=== PATIENT | female | born 1975 | race Caucasian/White ===

== ENCOUNTER 2018-05-24 13:48 | Inpatient (IN) | payer BC, MEDICAID ==
[~2018-05-24] VITALS: Ht 170.2 cm; Wt 81.0 kg
--- NOTE | 2018-05-24 14:09 | Emergency Room Report ---
History of Present Illness General Chief Complaint: Overdose Present Illness HPI Patient is a 42-year-old female who presented after increased generalized body aches. Patient reports having recently used cocaine as well as alcohol. She denies any fever. She reports having generalized discomfort. Patient states she has been drinking heavily. The patient stated that for the last week she's been doing "too many drugs.' The patient denies any focal weakness. History is limited by patient's poor cooperation. Allergies: Coded Allergies: AMOXICILLIN (Verified Allergy, Unknown, 05/24/18) Patient History Past Medical History: see triage record Last Menstrual Period: unk Reviewed Nursing Documentation: PMH: Agreed; PSxH: Agreed Review of Systems All Other Systems: negative except mentioned in HPI Physical Exam Vital Signs Date Time Temp Pulse Resp B/P (MAP) Pulse Ox O2 Delivery O2 Flow Rate FiO2 05/24/18 13:50 98.4 120 18 148/108 99 Room Air Sp02 EP Interpretation: reviewed, normal General Appearance: normal inspection, well appearing, no apparent distress, alert, GCS 15, non-toxic Head: atraumatic ENT: normal ENT inspection, hearing grossly normal, normal voice Neck: normal inspection, full range of motion, supple, no bony tend Respiratory: normal inspection, lungs clear, normal breath sounds, no respiratory distress, no retraction, no wheezing Cardiovascular #1: regular rate, rhythm, no edema Gastrointestinal: normal inspection, normal bowel sounds, non tender, soft, no guarding, no hernia Genitourinary: no CVA tenderness Musculoskeletal: normal inspection, back normal, normal range of motion Neurologic: normal inspection, alert, oriented x3, responsive, 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 Differential diagnosis included was not limited to anemia, urinary tract infection, electrolyte abnormality, hypothyroidism, myocardial infarction, myasthenia gravis, dehydration, among others. Because of complexity of patient's case laboratory testing and imaging studies were ordered. Laboratory testing was notable for market metabolic acidosis with elevated anion gap. Patient was started on IV fluids and given IV antiemetics. Patient was noted to have elevated blood alcohol level despite being awake and alert. Patient states that she was doing cocaine and urine drug screen confirms this. Patient was discussed with Dr. Lopez for Dr. Lema for inpatient management due need for IV hydration. Labs Test 05/24/18 13:57 05/24/18 14:55 05/24/18 15:56 White Blood Count 8.1 K/UL (4.8-10.8) Red Blood Count 4.43 M/UL (4.20-5.40) Hemoglobin 13.8 G/DL (12.0-16.0) Hematocrit 42.4 % (37.0-47.0) Mean Corpuscular Volume 96 FL (80-99) Mean Corpuscular Hemoglobin 31.0 PG (27.0-31.0) Mean Corpuscular Hemoglobin Concent 32.4 G/DL (32.0-36.0) Red Cell Distribution Width 14.6 % (11.6-14.8) Platelet Count 298 K/UL (150-450) Mean Platelet Volume 6.1 FL (6.5-10.1) Neutrophils (%) (Auto) 70.6 % (45.0-75.0) Lymphocytes (%) (Auto) 18.4 % (20.0-45.0) Monocytes (%) (Auto) 8.1 % (1.0-10.0) Eosinophils (%) (Auto) 0.1 % (0.0-3.0) Basophils (%) (Auto) 2.8 % (0.0-2.0) Sodium Level 137 MMOL/L (136-145) Potassium Level 3.6 MMOL/L (3.5-5.1) Chloride Level 97 MMOL/L (98-107) Carbon Dioxide Level 14 MMOL/L (21-32) Anion Gap 26 mmol/L (5-15) Blood Urea Nitrogen 13 mg/dL (7-18) Creatinine 0.9 MG/DL (0.55-1.30) Estimat Glomerular Filtration Rate > 60 mL/min (>60) Glucose Level 86 MG/DL (74-106) Calcium Level 8.8 MG/DL (8.5-10.1) Total Bilirubin 0.5 MG/DL (0.2-1.0) Aspartate Amino Transf (AST/SGOT) 593 U/L (15-37) Alanine Aminotransferase (ALT/SGPT) 310 U/L (12-78) Alkaline Phosphatase 92 U/L (46-116) Total Creatine Kinase 123 U/L (26-308) Troponin I 0.000 ng/mL (0.000-0.056) Total Protein 9.3 G/DL (6.4-8.2) Albumin 4.3 G/DL (3.4-5.0) Globulin 5.0 g/dL Albumin/Globulin Ratio 0.9 (1.0-2.7) Lipase 299 U/L (73-393) Thyroid Stimulating Hormone (TSH) 3.806 uiU/mL (0.358-3.740) Serum Alcohol 341 mg/dL Urine Color Pale yellow Urine Appearance Clear Urine pH 5 (4.5-8.0) Urine Specific [place] 1.020 (1.005-1.035) Urine Protein 1+ (NEGATIVE) Urine Glucose (UA) Negative (NEGATIVE) Urine Ketones 4+ (NEGATIVE) Urine Blood 1+ (NEGATIVE) Urine Nitrite Negative (NEGATIVE) Urine Bilirubin Negative (NEGATIVE) Urine Urobilinogen Normal MG/DL (0.0-1.0) Urine Leukocyte Esterase Negative (NEGATIVE) Urine RBC 0-2 /HPF (0 - 2) Urine WBC 0-2 /HPF (0 - 2) Urine Squamous Epithelial Cells Few /LPF (NONE/OCC) Urine Bacteria Few /HPF (NONE) Urine HCG, Qualitative Negative (NEGATIVE) Urine Opiates Screen Negative (NEGATIVE) Urine Barbiturates Screen Negative (NEGATIVE) Phencyclidine (PCP) Screen Negative (NEGATIVE) Urine Amphetamines Screen Negative (NEGATIVE) Urine Benzodiazepines Screen Positive (NEGATIVE) Urine Cocaine Screen Positive (NEGATIVE) Urine Marijuana (THC) Screen Negative (NEGATIVE) Salicylates Level 1.8 ug/mL (2.8-20) Last Vital Signs Date Time Temp Pulse Resp B/P (MAP) Pulse Ox O2 Delivery O2 Flow Rate FiO2 05/24/18 13:50 98.4 120 18 148/108 99 Room Air Status: unchanged Disposition: ADMITTED INPATIENT Condition: Stable Efren Mustafa MD May 24, 2018 14:09
[2018-05-24 14:15] VITALS: BP 173/91
[2018-05-24] MEDS ORDERED: LORazepam Inj 2mg/ml 1ml IV ONE (14:30)
[2018-05-24 14:33] LABS: BASOPHILS % (AUTO) 2.8 % (0.0-2.0); EOSINOPHILS % (AUTO) 0.1 % (0.0-3.0); HEMATOCRIT 42.4 % (37.0-47.0); HEMOGLOBIN 13.8 G/DL (12.0-16.0); LYMPHOCYTES % (AUTO) 18.4 % (20.0-45.0); MEAN CORPUSCULAR VOLUME 96 FL (80-99); MONOCYTES % (AUTO) 8.1 % (1.0-10.0); NEUTROPHILS % (AUTO) 70.6 % (45.0-75.0); PLATELET COUNT 298 K/UL (150-450); RED BLOOD COUNT 4.43 M/UL (4.20-5.40); RED CELL DISTRIBUTION WIDTH 14.6 % (11.6-14.8); WHITE BLOOD COUNT 8.1 K/UL (4.8-10.8)
[2018-05-24 15:05] LABS: BILIRUBIN, URINE NEGATIVE (NEGATIVE); COLOR,URINE PALE YELLOW; GLUCOSE, URINE (UA) NEGATIVE (NEGATIVE); KETONES,URINE 4+ (NEGATIVE); LEUKOCYTE ESTERASE ,URINE NEGATIVE (NEGATIVE); NITRITE,URINE NEGATIVE (NEGATIVE); PH,URINE 5 (4.5-8.0); PROTEIN,URINE 1+ (NEGATIVE); UROBILINOGEN,URINE NORMAL MG/DL (0.0-1.0)
[2018-05-24 15:06] LABS: APPEARANCE,URINE CLEAR
[2018-05-24 15:22] LABS: ANION GAP 26 mmol/L (5-15); BLOOD UREA NITROGEN 13 mg/dL (7-18); CALCIUM 8.8 MG/DL (8.5-10.1); CARBON DIOXIDE 14 MMOL/L (21-32); CHLORIDE 97 MMOL/L (98-107); CREATININE 0.9 MG/DL (0.55-1.30); POTASSIUM 3.6 MMOL/L (3.5-5.1); SODIUM 137 MMOL/L (136-145)
[2018-05-24 15:34] LABS: ALANINE AMINOTRANSFERASE 310 U/L (12-78); ALBUMIN 4.3 G/DL (3.4-5.0); ALBUMIN/GLOBULIN RATIO 0.9 (1.0-2.7); ALKALINE PHOSPHATASE 92 U/L (46-116); ASPARTATE AMINO TRANSFERASE 593 U/L (15-37); BILIRUBIN,TOTAL 0.5 MG/DL (0.2-1.0); CREATINE KINASE 123 U/L (26-308)
[2018-05-24] MEDS: D5 1/2NS w/KCl 20mEq 1,000 ML IV SCH ×2 (15:59→21:26)
[2018-05-24] MEDS ORDERED: NKM (16:05)
[2018-05-24 16:16] VITALS: BP 136/88
[2018-05-24 18:18] VITALS: BP 117/80
--- NOTE | 2018-05-24 18:21 | History and Physical ---
History of Present Illness General Date patient seen: May 24, 2018 Time patient seen: 18:04 Reason for Hospitalization: Overdose Present Illness HPI 42 yo female with no sig pmh presents with complaints of generalized body aches. Patient states she has been feeling very weak throughout her whole body, denies any focal weakness. Patient admits to binge drinking. Patient does not know how much alcohol she consumed, states she has been doing a lot of cocaine as well. patient very agitated and very difficult to obtain accurate history from patient. Denies any vision changes, had a mild headache, denies any chest pain or sob, denies fevers/chills. code status discussed, patient would like to remain full code past fam hx: reviewed, denies any sig past fam hx that she is aware of social hx: reviewed, admits to excessive alcohol use, admits to cocaine use, denies other drugs, admits to smoking occasionally, would not tell me how much, likely less than half ppd Allergies: Coded Allergies: AMOXICILLIN (Verified Allergy, Unknown, 05/24/18) Medication History Scheduled No Known Medications* (NKM - No Known Medications*), 0 ., (Reported) Patient History History Provided By: Patient, EMS Healthcare decision maker Resuscitation status Advanced Directive on File Review of Systems All Other Systems: negative except mentioned in HPI ROS Narrative ROS : 14 point ROS reviewed and negative except for the above HPI Physical Exam General Appearance: WD/WN, alert, agitated Lines, tubes and drains: peripheral HEENT: normocephalic, atraumatic Neck: non-tender, normal alignment, supple, normal inspection Respiratory/Chest: chest wall non-tender, lungs clear, normal breath sounds, no respiratory distress, no accessory muscle use Cardiovascular/Chest: normal peripheral pulses, regular rhythm, tachycardia Abdomen: normal bowel sounds, non tender, soft, no organomegaly, no mass Extremities: normal range of motion, non-tender, normal inspection Skin Exam: normal pigmentation, warm/dry 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, no motor/sensory deficits, alert, oriented x 3, responsive Musculoskeletal: normal muscle bulk Last 24 Hour Vital Signs Date Time Temp Pulse Resp B/P (MAP) Pulse Ox O2 Delivery O2 Flow Rate FiO2 05/24/18 16:16 98.4 95 15 136/88 99 Room Air 05/24/18 14:15 98.4 99 18 173/91 93 Room Air 05/24/18 14:11 99 12 Room Air 93 05/24/18 13:50 98.4 120 18 148/108 99 Room Air Laboratory Tests Test 05/24/18 13:57 05/24/18 14:55 05/24/18 15:56 White Blood Count 8.1 K/UL (4.8-10.8) Red Blood Count 4.43 M/UL (4.20-5.40) Hemoglobin 13.8 G/DL (12.0-16.0) Hematocrit 42.4 % (37.0-47.0) Mean Corpuscular Volume 96 FL (80-99) Mean Corpuscular Hemoglobin 31.0 PG (27.0-31.0) Mean Corpuscular Hemoglobin Concent 32.4 G/DL (32.0-36.0) Red Cell Distribution Width 14.6 % (11.6-14.8) Platelet Count 298 K/UL (150-450) Mean Platelet Volume 6.1 FL (6.5-10.1) L Neutrophils (%) (Auto) 70.6 % (45.0-75.0) Lymphocytes (%) (Auto) 18.4 % (20.0-45.0) L Monocytes (%) (Auto) 8.1 % (1.0-10.0) Eosinophils (%) (Auto) 0.1 % (0.0-3.0) Basophils (%) (Auto) 2.8 % (0.0-2.0) H Sodium Level 137 MMOL/L (136-145) Potassium Level 3.6 MMOL/L (3.5-5.1) Chloride Level 97 MMOL/L (98-107) L Carbon Dioxide Level 14 MMOL/L (21-32) L Anion Gap 26 mmol/L (5-15) H Blood Urea Nitrogen 13 mg/dL (7-18) Creatinine 0.9 MG/DL (0.55-1.30) Estimat Glomerular Filtration Rate > 60 mL/min (>60) Glucose Level 86 MG/DL (74-106) Calcium Level 8.8 MG/DL (8.5-10.1) Total Bilirubin 0.5 MG/DL (0.2-1.0) Aspartate Amino Transf (AST/SGOT) 593 U/L (15-37) H Alanine Aminotransferase (ALT/SGPT) 310 U/L (12-78) H Alkaline Phosphatase 92 U/L (46-116) Total Creatine Kinase 123 U/L (26-308) Troponin I 0.000 ng/mL (0.000-0.056) Total Protein 9.3 G/DL (6.4-8.2) H Albumin 4.3 G/DL (3.4-5.0) Globulin 5.0 g/dL Albumin/Globulin Ratio 0.9 (1.0-2.7) L Lipase 299 U/L (73-393) Thyroid Stimulating Hormone (TSH) 3.806 uiU/mL (0.358-3.740) Serum Alcohol 341 mg/dL Urine Color Pale yellow Urine Appearance Clear Urine pH 5 (4.5-8.0) Urine Specific [place] 1.020 (1.005-1.035) Urine Protein 1+ (NEGATIVE) H Urine Glucose (UA) Negative (NEGATIVE) Urine Ketones 4+ (NEGATIVE) H Urine Blood 1+ (NEGATIVE) H Urine Nitrite Negative (NEGATIVE) Urine Bilirubin Negative (NEGATIVE) Urine Urobilinogen Normal MG/DL (0.0-1.0) Urine Leukocyte Esterase Negative (NEGATIVE) Urine RBC 0-2 /HPF (0 - 2) Urine WBC 0-2 /HPF (0 - 2) Urine Squamous Epithelial Cells Few /LPF (NONE/OCC) Urine Bacteria Few /HPF (NONE) Urine HCG, Qualitative Negative (NEGATIVE) Urine Opiates Screen Negative (NEGATIVE) Urine Barbiturates Screen Negative (NEGATIVE) Phencyclidine (PCP) Screen Negative (NEGATIVE) Urine Amphetamines Screen Negative (NEGATIVE) Urine Benzodiazepines Screen Positive (NEGATIVE) H Urine Cocaine Screen Positive (NEGATIVE) H Urine Marijuana (THC) Screen Negative (NEGATIVE) Salicylates Level 1.8 ug/mL (2.8-20) L Height (Feet): 5 Height (Inches): 6.00 Weight (Pounds): 175 Medications Current Medications Medications (Trade) Dose Ordered Sig/Josias Route PRN Reason Start Time Stop Time Status Last Admin Dose Admin Dextrose/ Electrolytes 1,000 ml @ 125 mls/hr Q8H IV 05/24/18 15:30 06/23/18 15:29 05/24/18 15:59 Assessment/Plan Problem List: (1) Alcohol intoxication Assessment & Plan: unsure of how much alcohol patient drank, patient will not say elevated etoh level of 341 maintaining airway ciwa fall precautions aspiration precautions banana bag aggressive hydration monitor closely ekg reviewed, sinus tachy, no acute st t wave changes. ICD Codes: F10.929 - Alcohol use, unspecified with intoxication, unspecified SNOMED: 76096993 (2) Drug overdose Assessment & Plan: cocaine abuse educated on drug cessation for over 15mins intentional, denies SI ICD Codes: T50.901A - Poisoning by unspecified drugs, medicaments and biological substances, accidental (unintentional), initial encounter SNOMED: 81543506 Qualifiers: Qualified Codes: T50.902A - Poisoning by unspecified drugs, medicaments and biological substances, intentional self-harm, initial encounter (3) Increased anion gap metabolic acidosis Assessment & Plan: AG 26 due to alcohol abuse aggressive hydration IVF monitor closely ICD Codes: E87.2 - Acidosis SNOMED: 42046565 (4) Transaminitis Assessment & Plan: AST/ALT 593/310, consistent with alcohol abuse no pt/inr to calc discriminant factor, pending pt/inr results monitor ICD Codes: R74.0 - Nonspecific elevation of levels of transaminase and lactic acid dehydrogenase [LDH] SNOMED: 909749664, 711808189 (5) Hypokalemia Assessment & Plan: due to alcohol abuse d5 half ns with 20meq KCL monitor check Mg level ICD Codes: E87.6 - Hypokalemia SNOMED: 47007946 (6) Weakness Assessment & Plan: due to all of the above not in rhabdo continue aggressive hydration ICD Codes: R53.1 - Weakness SNOMED: 50826491 (7) Alcoholic hepatitis Assessment & Plan: as per above pending pt/int to calc discriminant factor monitor closely continue management per above ICD Codes: K70.10 - Alcoholic hepatitis without ascites SNOMED: 218926140 Qualifiers: Qualified Codes: K70.10 - Alcoholic hepatitis without ascites (8) Smoker Assessment & Plan: educated on smoking cessation for over 15 mins patient responded " Okay" patient very difficult to speak with, will continue to discuss cessation with patient ICD Codes: F17.200 - Nicotine dependence, unspecified, uncomplicated SNOMED: 80546953 Status: stable Assessment/Plan DVT Prophylaxis: SCD, HSQ Code Status: Full I have reviewed all medications, labs and imaging with patient. Hospital Classification Declaration: Based on this initial evaluation, and depending on the patient's clinical course, I anticipate that this patient will require hospitalization for 2-3 days for alcohol and drug intoxication with metabolic acidosis and alcohol hepatitis and close respiratory/hemodynamic monitoring. Disposition: Once the patient is stable to leave the hospital, I anticipate the patient will likely be discharged to the following environment: home with HH vs SNF I spent 75 minutes on this patient's case, and 45 minutes were dedicated to counseling and/or care coordination. Discussed with patient/family, nursing staff, SW/CM, and ER physician regarding clinical status, treatment course, and disposition planning. Time of note may not reflect time of encounter. Date of Discussion: 05/24/18 A [id number] discussion with the patient regarding the patient's advanced care planning took place during this hospitalization on the above date. The discussion included the explanation and discussion of advance directives and associated forms/documents, as well as the patient's current code status. We also discussed at length the patient's medical conditions (both acute and chronic), general prognosis, treatment options, and goals of care. The following summarizes the discussion: Advance Care Planning/Goals of Care: - Will attempt to fill out an AD and/or POLST with the patient prior to discharge, if not already completed - Continue current evaluation and management of any acute and chronic medical issues - Will continue to support the patient/family - Will continue to discuss both short- and long-term goals of care DPOA-HC/Surrogate Decision Maker: None currently appointed Code Status: Full Code AD Forms/Documents Completed: Deferred A total of 35 minutes was spent on this discussion, including counseling, answering questions, and completing, if any, pertinent advanced care planning forms/documents. Yusra Lopez MD May 24, 2018 18:21
[2018-05-24 21:00] VITALS: BP 123/68
[2018-05-24] MEDS ORDERED: Thiamine 100mg in D5W 55ml IVPB ONE (21:30)
[2018-05-24] MEDS ORDERED: Folic Acid 1 MG, Magnesium Sulfate 2,000 MG, Multivitamin - 12 Injection 10 ML in NS 10... IV ONE (21:30)
[2018-05-24] MEDS: Morphine Sulfate 2mg/ml Inj IVP PRN (23:46)
[2018-05-25] VITALS: BP 117/98
[2018-05-25 04:00] VITALS: BP 110/78
[2018-05-25] MEDS: Morphine Sulfate 2mg/ml Inj IVP PRN (05:51)
[2018-05-25 07:31] LABS: ANION GAP 10 mmol/L (5-15); BLOOD UREA NITROGEN 8 mg/dL (7-18); CALCIUM 7.8 MG/DL (8.5-10.1); CARBON DIOXIDE 23 MMOL/L (21-32); CHLORIDE 100 MMOL/L (98-107); CREATININE 0.7 MG/DL (0.55-1.30); POTASSIUM 3.9 MMOL/L (3.5-5.1); SODIUM 133 MMOL/L (136-145)
[2018-05-25 07:36] LABS: ALANINE AMINOTRANSFERASE 188 U/L (12-78); ALBUMIN 3.3 G/DL (3.4-5.0); ALKALINE PHOSPHATASE 71 U/L (46-116); ASPARTATE AMINO TRANSFERASE 259 U/L (15-37); BASOPHILS % (AUTO) 1.6 % (0.0-2.0); EOSINOPHILS % (AUTO) 0.7 % (0.0-3.0); HEMATOCRIT 35.2 % (37.0-47.0); HEMOGLOBIN 11.5 G/DL (12.0-16.0); LYMPHOCYTES % (AUTO) 10.2 % (20.0-45.0); MEAN CORPUSCULAR VOLUME 94 FL (80-99); NEUTROPHILS % (AUTO) 79.5 % (45.0-75.0); PLATELET COUNT 220 K/UL (150-450); RED BLOOD COUNT 3.72 M/UL (4.20-5.40); RED CELL DISTRIBUTION WIDTH 14.7 % (11.6-14.8); WHITE BLOOD COUNT 6.5 K/UL (4.8-10.8)
[2018-05-25 08:00] VITALS: BP 117/83
[2018-05-25] MEDS: LORazepam Inj 2mg/ml 1ml IV PRN ×2 (09:10→18:41)
[2018-05-25 12:00] VITALS: BP 118/84
--- NOTE | 2018-05-25 13:50 | General Progress Note ---
Assessment/Plan Problem List: (1) Alcohol intoxication Assessment & Plan: drank 3/4ths bottle of vodka elevated etoh level of 341 continue fluids feeling a bit better starting to have withdrawal sx start librium 50mg PO q6hrs PT social work consult for alcohol cessation educated on alcohol cessation for over 15 mins ICD Codes: F10.929 - Alcohol use, unspecified with intoxication, unspecified SNOMED: 04249367 (2) Drug overdose Assessment & Plan: cocaine abuse educated on drug cessation for over 15mins intentional, denies SI ICD Codes: T50.901A - Poisoning by unspecified drugs, medicaments and biological substances, accidental (unintentional), initial encounter SNOMED: 85426257 Qualifiers: Qualified Codes: T50.902A - Poisoning by unspecified drugs, medicaments and biological substances, intentional self-harm, initial encounter (3) Increased anion gap metabolic acidosis Assessment & Plan: AG 26 on admit, due to alcohol abuse aggressive hydration IVF monitor closely resolved ICD Codes: E87.2 - Acidosis SNOMED: 91800815 (4) Transaminitis Assessment & Plan: AST/ALT 593/310, consistent with alcohol abuse, on admit improving monitor ICD Codes: R74.0 - Nonspecific elevation of levels of transaminase and lactic acid dehydrogenase [LDH] SNOMED: 790918202, 110308612 (5) Hypokalemia Assessment & Plan: due to alcohol abuse d5 half ns with 20meq KCL resolved, K improved monitor ICD Codes: E87.6 - Hypokalemia SNOMED: 85209348 (6) Weakness Assessment & Plan: due to all of the above not in rhabdo continue hydration, will dec rate, encourage PO intake PT ICD Codes: R53.1 - Weakness SNOMED: 51271447 (7) Alcoholic hepatitis Assessment & Plan: as per above pending pt/int to calc discriminant factor monitor closely continue management per above ICD Codes: K70.10 - Alcoholic hepatitis without ascites SNOMED: 134200178 Qualifiers: Qualified Codes: K70.10 - Alcoholic hepatitis without ascites (8) Smoker Assessment & Plan: educated on smoking cessation for over 15 mins patient responded " Okay" patient very difficult to speak with, will continue to discuss cessation with patient ICD Codes: F17.200 - Nicotine dependence, unspecified, uncomplicated SNOMED: 56501820 (9) Bipolar disorder Assessment & Plan: psych consulted was on meds before, has not see a psychiatrist in a while due to insurance issues ICD Codes: F31.9 - Bipolar disorder, unspecified SNOMED: 72016669 Status: stable Assessment/Plan DVT Prophylaxis: SCD, HSQ Code Status: Full I have reviewed all medications, labs and imaging with patient. Hospital Classification Declaration: Based on this initial evaluation, and depending on the patient's clinical course, I anticipate that this patient will require hospitalization for 2-3 days for alcohol and drug intoxication with metabolic acidosis and alcohol hepatitis and close respiratory/hemodynamic monitoring. Disposition: Once the patient is stable to leave the hospital, I anticipate the patient will likely be discharged to the following environment: home with HH vs SNF I spent 50 minutes on this patient's case, and 35 minutes were dedicated to counseling and/or care coordination. Discussed with patient/family, nursing staff, SW/CM, and ER physician regarding clinical status, treatment course, and disposition planning. Time of note may not reflect time of encounter. Subjective Date patient seen: May 25, 2018 Time patient seen: 13:43 Allergies: Coded Allergies: AMOXICILLIN (Verified Allergy, Unknown, 05/24/18) Uncoded Allergies: Apples, Walnuts, Macadamia nuts, Pecans, Chocolate (Allergy, Intermediate, Itching, 05/25/18) Hives, Swelling (throat) Subjective f/u alcohol intoxication, cocaine abuse, AG metabolic acidosis feeling better today but still very weak and shaky still feeling a bit nauseous, not eating much, no vomiting, no abd pain or diarrhea states she is also bipolar but does not know her home medications, does not see psychiatrist anymore either ROS: 14 point ROS negative except for the above Objective Last 24 Hour Vital Signs Date Time Temp Pulse Resp B/P (MAP) Pulse Ox O2 Delivery O2 Flow Rate FiO2 05/25/18 09:00 Room Air 05/25/18 08:00 97.2 94 16 117/83 (94) 95 05/25/18 04:00 92 05/25/18 04:00 97.7 106 20 110/78 (89) 95 05/25/18 00:57 Room Air 05/25/18 00:00 98.9 93 18 117/98 (104) 94 05/25/18 00:00 94 05/25/18 00:00 94 05/24/18 21:05 98.2 85 17 118/82 99 Room Air 98 05/24/18 21:00 97.3 95 20 123/68 (86) 97 05/24/18 21:00 100 05/24/18 20:00 100 05/24/18 18:18 98.6 88 17 117/80 99 Room Air 93 05/24/18 16:16 98.4 95 15 136/88 99 Room Air 05/24/18 14:15 98.4 99 18 173/91 93 Room Air 05/24/18 14:11 99 12 Room Air 93 05/24/18 13:50 98.4 120 18 148/108 99 Room Air Intake and Output 05/24/18 05/25/18 19:00 07:00 Intake Total 400 ml Balance 400 ml Intake Oral 400 ml # Voids 1 # Bowel Movements 1 Laboratory Tests 05/24/18 13:57: White Blood Count 8.1, Red Blood Count 4.43, Hemoglobin 13.8, Hematocrit 42.4, Mean Corpuscular Volume 96, Mean Corpuscular Hemoglobin 31.0, Mean Corpuscular Hemoglobin Concent 32.4, Red Cell Distribution Width 14.6, Platelet Count 298, Mean Platelet Volume 6.1L, Neutrophils (%) (Auto) 70.6, Lymphocytes (%) (Auto) 18.4L, Monocytes (%) (Auto) 8.1, Eosinophils (%) (Auto) 0.1, Basophils (%) (Auto ) 2.8H, Sodium Level 137, Potassium Level 3.6, Chloride Level 97L, Carbon Dioxide Level 14L, Anion Gap 26H, Blood Urea Nitrogen 13, Creatinine 0.9, Estimat Glomerular Filtration Rate > 60, Glucose Level 86, Calcium Level 8.8, Total Bilirubin 0.5, Aspartate Amino Transf (AST/SGOT) 593H, Alanine Aminotransferase (ALT/SGPT) 310H, Alkaline Phosphatase 92, Total Creatine Kinase 123, Troponin I 0.000, Total Protein 9.3H, Albumin 4.3, Globulin 5.0, Albumin/Globulin Ratio 0.9L, Lipase 299, Thyroid Stimulating Hormone (TSH) 3.806H, Serum Alcohol 341 05/24/18 14:55: Urine Color Pale yellow, Urine Appearance Clear, Urine pH 5, Urine Specific [place] 1.020, Urine Protein 1+H, Urine Glucose (UA) Negative, Urine Ketones 4+H , Urine Blood 1+H, Urine Nitrite Negative, Urine Bilirubin Negative, Urine Urobilinogen Normal, Urine Leukocyte Esterase Negative, Urine RBC 0-2, Urine WBC 0-2, Urine Squamous Epithelial Cells Few, Urine Bacteria Few, Urine HCG, Qualitative Negative, Urine Opiates Screen Negative, Urine Barbiturates Screen Negative, Phencyclidine (PCP) Screen Negative, Urine Amphetamines Screen Negative, Urine Benzodiazepines Screen PositiveH, Urine Cocaine Screen PositiveH , Urine Marijuana (THC) Screen Negative 05/24/18 15:56: Salicylates Level 1.8L 05/24/18 21:50: Prothrombin Time 10.3, Prothromb Time International Ratio 1.0, Magnesium Level 1.8 05/25/18 07:05: White Blood Count 6.5, Red Blood Count 3.72L, Hemoglobin 11.5L, Hematocrit 35.2L , Mean Corpuscular Volume 94, Mean Corpuscular Hemoglobin 30.9, Mean Corpuscular Hemoglobin Concent 32.7, Red Cell Distribution Width 14.7, Platelet Count 220, Mean Platelet Volume 6.5, Neutrophils (%) (Auto) 79.5H, Lymphocytes ( %) (Auto) 10.2L, Monocytes (%) (Auto) 8.0, Eosinophils (%) (Auto) 0.7, Basophils (%) (Auto) 1.6, Sodium Level 133L, Potassium Level 3.9, Chloride Level 100, Carbon Dioxide Level 23, Anion Gap 10, Blood Urea Nitrogen 8, Creatinine 0.7, Estimat Glomerular Filtration Rate > 60, Glucose Level 101, Calcium Level 7.8L, Total Bilirubin 1.0, Aspartate Amino Transf (AST/SGOT) 259H , Alanine Aminotransferase (ALT/SGPT) 188H, Alkaline Phosphatase 71, Total Protein 6.6, Albumin 3.3L, Globulin 3.3, Albumin/Globulin Ratio 1.0 Height (Feet): 5 Height (Inches): 7.00 Weight (Pounds): 178 General Appearance: WD/WN, no apparent distress, alert EENT: PERRL/EOMI, normal ENT inspection, TMs normal, pharynx normal Neck: non-tender, normal alignment, supple, normal inspection Cardiovascular: normal peripheral pulses, normal rate, regular rhythm Respiratory/Chest: chest wall non-tender, lungs clear, normal breath sounds, no respiratory distress, no accessory muscle use Abdomen: normal bowel sounds, non tender, soft, no organomegaly, no mass Extremities: normal range of motion, non-tender, normal inspection, other - + asterixis Neurologic: maintenance chief II-XII grossly normal, no motor/sensory deficits, alert, oriented x 3, responsive, normal mood/affect Yusra Lopez MD May 25, 2018 13:50
[2018-05-25] MEDS: chlordiazePOXIDE 25mg Cap ORAL SCH ×2 (13:56→22:23)
[2018-05-25 16:00] VITALS: BP 130/74
[2018-05-25 20:00] VITALS: BP 144/87
--- NOTE | 2018-05-25 21:55 | Consultation ---
History of Present Illness General Chief Complaint: Overdose Present Illness HPI 42 yo female with hx of drug use and bipolar disorder presents with complaints of generalized body aches. Patient states she has been feeling very weak. the pt is depressed and has low energy. the pt has poor insight the pt stated that she was motivated to stop drinking and using drugs. the pt denied si/hi Allergies: Coded Allergies: AMOXICILLIN (Verified Allergy, Unknown, 05/24/18) Uncoded Allergies: Apples, Walnuts, Macadamia nuts, Pecans, Chocolate (Allergy, Intermediate, Itching, 05/25/18) Hives, Swelling (throat) Medication History Scheduled No Known Medications* (NKM - No Known Medications*), 0 ., (Reported) Patient History Limited by: medical condition History Provided By: Patient, PMD Healthcare decision maker N Resuscitation status Full Code Advanced Directive on File Past Medical/Surgical History Past Medical/Surgical History: (1) Bipolar disorder (2) Alcohol intoxication (3) Drug overdose (4) Metabolic acidosis (5) Increased anion gap metabolic acidosis (6) Hypokalemia (7) Transaminitis (8) Weakness (9) Alcoholic hepatitis Review of Systems Psychiatric: Reports: anxiety, depressed feelings, emotional problems Physical Exam General Appearance: alert, moderate distress Neurologic: oriented x 3, responsive, depressed affect Last 24 Hour Vital Signs Date Time Temp Pulse Resp B/P (MAP) Pulse Ox O2 Delivery O2 Flow Rate FiO2 05/25/18 16:00 98.7 89 16 130/74 (92) 96 05/25/18 16:00 90 05/25/18 12:00 97.3 91 16 118/84 (95) 96 05/25/18 12:00 89 05/25/18 09:00 Room Air 05/25/18 08:00 97.2 94 16 117/83 (94) 95 05/25/18 08:00 96 05/25/18 04:00 92 05/25/18 04:00 97.7 106 20 110/78 (89) 95 05/25/18 00:57 Room Air 05/25/18 00:00 98.9 93 18 117/98 (104) 94 05/25/18 00:00 94 05/25/18 00:00 94 Intake and Output 05/24/18 05/25/18 19:00 07:00 Intake Total 400 ml Balance 400 ml Intake Oral 400 ml # Voids 1 # Bowel Movements 1 Laboratory Tests Test 05/25/18 07:05 White Blood Count 6.5 K/UL (4.8-10.8) Red Blood Count 3.72 M/UL (4.20-5.40) L Hemoglobin 11.5 G/DL (12.0-16.0) L Hematocrit 35.2 % (37.0-47.0) L Mean Corpuscular Volume 94 FL (80-99) Mean Corpuscular Hemoglobin 30.9 PG (27.0-31.0) Mean Corpuscular Hemoglobin Concent 32.7 G/DL (32.0-36.0) Red Cell Distribution Width 14.7 % (11.6-14.8) Platelet Count 220 K/UL (150-450) Mean Platelet Volume 6.5 FL (6.5-10.1) Neutrophils (%) (Auto) 79.5 % (45.0-75.0) H Lymphocytes (%) (Auto) 10.2 % (20.0-45.0) L Monocytes (%) (Auto) 8.0 % (1.0-10.0) Eosinophils (%) (Auto) 0.7 % (0.0-3.0) Basophils (%) (Auto) 1.6 % (0.0-2.0) Sodium Level 133 MMOL/L (136-145) L Potassium Level 3.9 MMOL/L (3.5-5.1) Chloride Level 100 MMOL/L (98-107) Carbon Dioxide Level 23 MMOL/L (21-32) Anion Gap 10 mmol/L (5-15) Blood Urea Nitrogen 8 mg/dL (7-18) Creatinine 0.7 MG/DL (0.55-1.30) Estimat Glomerular Filtration Rate > 60 mL/min (>60) Glucose Level 101 MG/DL (74-106) Calcium Level 7.8 MG/DL (8.5-10.1) L Total Bilirubin 1.0 MG/DL (0.2-1.0) Aspartate Amino Transf (AST/SGOT) 259 U/L (15-37) H Alanine Aminotransferase (ALT/SGPT) 188 U/L (12-78) H Alkaline Phosphatase 71 U/L (46-116) Total Protein 6.6 G/DL (6.4-8.2) Albumin 3.3 G/DL (3.4-5.0) L Globulin 3.3 g/dL Albumin/Globulin Ratio 1.0 (1.0-2.7) Height (Feet): 5 Height (Inches): 7.00 Weight (Pounds): 178 Medications Current Medications Medications (Trade) Dose Ordered Sig/Josias Route PRN Reason Start Time Stop Time Status Last Admin Dose Admin Chlordiazepoxide (Librium) 50 mg Q6H ORAL 05/25/18 14:00 06/01/18 13:59 05/25/18 13:56 Lorazepam (Ativan 2mg/ml 1ml) 1 mg Q6H PRN IV For Anxiety 05/25/18 08:45 06/01/18 08:44 05/25/18 18:41 Morphine Sulfate (Morphine Sulfate) 1 mg Q6H PRN IVP For Pain 05/24/18 18:00 05/31/18 17:59 05/25/18 05:51 Ondansetron HCl (Zofran) 4 mg Q6H PRN IVP Nausea & Vomiting 05/25/18 08:45 06/24/18 08:44 05/25/18 17:26 Assessment/Plan Problem List: (1) Alcohol intoxication ICD Codes: F10.929 - Alcohol use, unspecified with intoxication, unspecified SNOMED: 46570224 (2) Bipolar disorder ICD Codes: F31.9 - Bipolar disorder, unspecified SNOMED: 34233932 (3) Drug overdose ICD Codes: T50.901A - Poisoning by unspecified drugs, medicaments and biological substances, accidental (unintentional), initial encounter SNOMED: 35027021 Qualifiers: Qualified Codes: T50.902A - Poisoning by unspecified drugs, medicaments and biological substances, intentional self-harm, initial encounter Assessment/Plan Debbie Mcmullen Librium ativan the pt is not at imminent dts/dto the pt would benefit from drug treatment Cate Jamil MD May 25, 2018 21:55
[2018-05-26] VITALS: BP 141/81
[2018-05-26] MEDS: chlordiazePOXIDE 25mg Cap ORAL SCH ×4 (03:00→20:59)
[2018-05-26 04:00] VITALS: BP 144/85
[2018-05-26 06:37] LABS: BASOPHILS % (AUTO) 3.1 % (0.0-2.0); EOSINOPHILS % (AUTO) 4.6 % (0.0-3.0); HEMATOCRIT 36.4 % (37.0-47.0); HEMOGLOBIN 11.9 G/DL (12.0-16.0); LYMPHOCYTES % (AUTO) 27.9 % (20.0-45.0); MEAN CORPUSCULAR VOLUME 97 FL (80-99); MONOCYTES % (AUTO) 12.5 % (1.0-10.0); NEUTROPHILS % (AUTO) 51.9 % (45.0-75.0); PLATELET COUNT 204 K/UL (150-450); RED BLOOD COUNT 3.77 M/UL (4.20-5.40); RED CELL DISTRIBUTION WIDTH 14.8 % (11.6-14.8); WHITE BLOOD COUNT 3.9 K/UL (4.8-10.8)
[2018-05-26 06:52] LABS: ANION GAP 11 mmol/L (5-15); BLOOD UREA NITROGEN 7 mg/dL (7-18); CALCIUM 8.3 MG/DL (8.5-10.1); CARBON DIOXIDE 25 MMOL/L (21-32); CHLORIDE 102 MMOL/L (98-107); CREATININE 0.8 MG/DL (0.55-1.30); POTASSIUM 3.3 MMOL/L (3.5-5.1); SODIUM 138 MMOL/L (136-145)
[2018-05-26 08:00] VITALS: BP 144/75
--- NOTE | 2018-05-26 08:53 | General Progress Note ---
Assessment/Plan Problem List: (1) Alcohol intoxication Assessment & Plan: drank 3/4ths bottle of vodka elevated etoh level of 341 continue fluids feeling a bit better starting to have withdrawal sx continue librium 50mg PO q6hrs PT pending social work consult for alcohol cessation educated on alcohol cessation for over 15 mins ICD Codes: F10.929 - Alcohol use, unspecified with intoxication, unspecified SNOMED: 31656196 (2) Drug overdose Assessment & Plan: cocaine abuse educated on drug cessation for over 15mins intentional, denies SI ICD Codes: T50.901A - Poisoning by unspecified drugs, medicaments and biological substances, accidental (unintentional), initial encounter SNOMED: 04132481 Qualifiers: Qualified Codes: T50.902A - Poisoning by unspecified drugs, medicaments and biological substances, intentional self-harm, initial encounter (3) Increased anion gap metabolic acidosis Assessment & Plan: AG 26 on admit, due to alcohol abuse aggressive hydration IVF monitor closely resolved ICD Codes: E87.2 - Acidosis SNOMED: 23624676 (4) Transaminitis Assessment & Plan: AST/ALT 593/310, consistent with alcohol abuse, on admit improving monitor ICD Codes: R74.0 - Nonspecific elevation of levels of transaminase and lactic acid dehydrogenase [LDH] SNOMED: 645591158, 541049238 (5) Hypokalemia Assessment & Plan: due to alcohol abuse K today is 3.3 replenish check Mg level monitor ICD Codes: E87.6 - Hypokalemia SNOMED: 75375031 (6) Weakness Assessment & Plan: due to all of the above not in rhabdo continue hydration, will dec rate, encourage PO intake PT ICD Codes: R53.1 - Weakness SNOMED: 41563528 (7) Alcoholic hepatitis Assessment & Plan: as per above pending pt/int to calc discriminant factor monitor closely continue management per above ICD Codes: K70.10 - Alcoholic hepatitis without ascites SNOMED: 397193543 Qualifiers: Qualified Codes: K70.10 - Alcoholic hepatitis without ascites (8) Smoker Assessment & Plan: educated on smoking cessation for over 15 mins patient responded " Okay" patient very difficult to speak with, will continue to discuss cessation with patient ICD Codes: F17.200 - Nicotine dependence, unspecified, uncomplicated SNOMED: 49704845 (9) Bipolar disorder Assessment & Plan: psych consulted was on meds before, has not see a psychiatrist in a while due to insurance issues ICD Codes: F31.9 - Bipolar disorder, unspecified SNOMED: 87231247 Status: progressing Assessment/Plan DVT Prophylaxis: SCD, HSQ Code Status: Full I have reviewed all medications, labs and imaging with patient. Hospital Classification Declaration: Based on this initial evaluation, and depending on the patient's clinical course, I anticipate that this patient will require hospitalization for 2-3 days for alcohol and drug intoxication with metabolic acidosis and alcohol hepatitis and close respiratory/hemodynamic monitoring. Disposition: Once the patient is stable to leave the hospital, I anticipate the patient will likely be discharged to the following environment: home with HH vs SNF I spent 55 minutes on this patient's case, and 40 minutes were dedicated to counseling and/or care coordination. Discussed with patient/family, nursing staff, SW/CM, and ER physician regarding clinical status, treatment course, and disposition planning. Time of note may not reflect time of encounter. Subjective Date patient seen: May 26, 2018 Time patient seen: 08:50 Allergies: Coded Allergies: AMOXICILLIN (Verified Allergy, Unknown, 05/24/18) Uncoded Allergies: Apples, Walnuts, Macadamia nuts, Pecans, Chocolate (Allergy, Intermediate, Itching, 05/25/18) Hives, Swelling (throat) Subjective f/u alcohol intoxication, cocaine abuse, AG metabolic acidosis slowly feeling better, states she feels about "2%better than yesterday", states the librium is helping, still feeling "shaky" and gets agitated occasionally denies any abd pain or diarrhea/constipation states she has not eaten much and is wondering when she will get her appetite told patient her potassium was low today at 3.3 and that we will replenish it ROS: 14 point ROS negative except for the above Objective Last 24 Hour Vital Signs Date Time Temp Pulse Resp B/P (MAP) Pulse Ox O2 Delivery O2 Flow Rate FiO2 05/26/18 04:00 80 05/26/18 04:00 97.5 79 19 144/85 (104) 95 05/26/18 00:00 85 05/26/18 00:00 97.9 78 19 141/81 (101) 96 05/25/18 21:00 Room Air 05/25/18 20:00 89 05/25/18 20:00 97.3 69 17 144/87 (106) 98 05/25/18 16:00 98.7 89 16 130/74 (92) 96 05/25/18 16:00 90 05/25/18 12:00 97.3 91 16 118/84 (95) 96 05/25/18 12:00 89 05/25/18 09:00 Room Air Intake and Output 05/25/18 05/26/18 19:00 07:00 Intake Total 360 ml Balance 360 ml Intake Oral 360 ml # Voids 2 Laboratory Tests 05/26/18 06:14: White Blood Count 3.9L, Red Blood Count 3.77L, Hemoglobin 11.9L, Hematocrit 36.4L, Mean Corpuscular Volume 97, Mean Corpuscular Hemoglobin 31.6H, Mean Corpuscular Hemoglobin Concent 32.8, Red Cell Distribution Width 14.8, Platelet Count 204, Mean Platelet Volume 6.5, Neutrophils (%) (Auto) 51.9, Lymphocytes (% ) (Auto) 27.9, Monocytes (%) (Auto) 12.5H, Eosinophils (%) (Auto) 4.6H, Basophils (%) (Auto) 3.1H, Sodium Level 138, Potassium Level 3.3L, Chloride Level 102, Carbon Dioxide Level 25, Anion Gap 11, Blood Urea Nitrogen 7, Creatinine 0.8, Estimat Glomerular Filtration Rate > 60, Glucose Level 104, Calcium Level 8.3L Height (Feet): 5 Height (Inches): 7.00 Weight (Pounds): 178 Objective General Appearance: WD/WN, no apparent distress, alert EENT: PERRL/EOMI, normal ENT inspection, TMs normal, pharynx normal Neck: non-tender, normal alignment, supple, normal inspection Cardiovascular: normal peripheral pulses, normal rate, regular rhythm Respiratory/Chest: chest wall non-tender, lungs clear, normal breath sounds, no respiratory distress, no accessory muscle use Abdomen: normal bowel sounds, non tender, soft, no organomegaly, no mass Extremities: normal range of motion, non-tender, normal inspection, other - + asterixis Neurologic: arcgis developer II-XII grossly normal, no motor/sensory deficits, alert, oriented x 3, responsive, normal mood/affect Yusra Lopez MD May 26, 2018 08:53
[2018-05-26] MEDS ORDERED: Depakote 500mg tab ORAL SCH (09:00)
[2018-05-26 12:00] VITALS: BP 132/71
[2018-05-26] MEDS: ARIPiprazole 10mg tab ORAL SCH (13:45)
[2018-05-26 16:00] VITALS: BP 110/77
[2018-05-26] MEDS: LORazepam Inj 2mg/ml 1ml IV PRN (17:38)
[2018-05-26 20:00] VITALS: BP 109/73
[2018-05-26] MEDS ORDERED: Depakote ER 500mg tab ORAL SCH (21:00)
[2018-05-27] MEDS: LORazepam Inj 2mg/ml 1ml IV PRN (01:23)
[2018-05-27] MEDS: chlordiazePOXIDE 25mg Cap ORAL SCH ×2 (02:00→09:54)
[2018-05-27 04:00] VITALS: BP 99/70
[2018-05-27 08:00] VITALS: BP 89/55
[2018-05-27 08:05] LABS: EOSINOPHILS % (AUTO) 5.4 % (0.0-3.0); HEMATOCRIT 36.7 % (37.0-47.0); HEMOGLOBIN 11.7 G/DL (12.0-16.0); LYMPHOCYTES % (AUTO) 30.2 % (20.0-45.0); MEAN CORPUSCULAR VOLUME 97 FL (80-99); MONOCYTES % (AUTO) 13.1 % (1.0-10.0); NEUTROPHILS % (AUTO) 49.3 % (45.0-75.0); PLATELET COUNT 192 K/UL (150-450); RED BLOOD COUNT 3.79 M/UL (4.20-5.40); RED CELL DISTRIBUTION WIDTH 15.1 % (11.6-14.8); WHITE BLOOD COUNT 4.9 K/UL (4.8-10.8)
[2018-05-27 08:27] LABS: ANION GAP 10 mmol/L (5-15); BLOOD UREA NITROGEN 8 mg/dL (7-18); CALCIUM 8.5 MG/DL (8.5-10.1); CARBON DIOXIDE 25 MMOL/L (21-32); CHLORIDE 105 MMOL/L (98-107); CREATININE 0.7 MG/DL (0.55-1.30); POTASSIUM 3.4 MMOL/L (3.5-5.1); SODIUM 140 MMOL/L (136-145)
[2018-05-27] MEDS ORDERED: ABILIFY10 MG ORAL (09:18)
[2018-05-27] MEDS ORDERED: DIVALPROEX SOD500 M2 ORAL (09:18)
[2018-05-27] MEDS ORDERED: LIBRIUM10 MG ORAL (09:18)
--- NOTE | 2018-05-27 09:25 | Discharge Summary ---
Discharge Summary Hospital Course Date of Admission May 24, 2018 at 16:45 Date of Discharge may 27 2018 Admitting Diagnosis metabolic acidosis HPI Nola Woodard is a 42 year old female who was admitted on May 24, 2018 at 16: 45 for Metabolic Acidosis 42 yo female with no sig pmh presents with complaints of generalized body aches. Patient states she has been feeling very weak throughout her whole body, denies any focal weakness. Patient admits to binge drinking. Patient does not know how much alcohol she consumed treated with aggressive hydration/banana bag, multivitamins and placed on CIWA protocol. Patient placed on Librium due to withdrawal sx, denies any complaints , doing well today, feels much better with librium patient states she will stop drinking alcohol and SW discussed with patient and gave AA cessation information , patient states she will follow up with AA. dc home stable patient understands plan of care and has a home to go to Hospital Course (1) Alcohol intoxication Assessment & Plan: drank 3/4ths bottle of vodka elevated etoh level of 341 continue fluids feeling a bit better starting to have withdrawal sx improved with librium social work consult for alcohol cessation educated on alcohol cessation for over 15 mins ICD Codes: F10.929 - Alcohol use, unspecified with intoxication, unspecified SNOMED: 53628163 (2) Drug overdose Assessment & Plan: cocaine abuse educated on drug cessation for over 15mins intentional, denies SI ICD Codes: T50.901A - Poisoning by unspecified drugs, medicaments and biological substances, accidental (unintentional), initial encounter SNOMED: 62346463 Qualifiers: Qualified Codes: T50.902A - Poisoning by unspecified drugs, medicaments and biological substances, intentional self-harm, initial encounter (3) Increased anion gap metabolic acidosis Assessment & Plan: AG 26 on admit, due to alcohol abuse aggressive hydration IVF monitor closely resolved ICD Codes: E87.2 - Acidosis SNOMED: 13749599 (4) Transaminitis Assessment & Plan: AST/ALT 593/310, consistent with alcohol abuse, on admit improving monitor ICD Codes: R74.0 - Nonspecific elevation of levels of transaminase and lactic acid dehydrogenase [LDH] SNOMED: 865071328, 651695399 (5) Hypokalemia Assessment & Plan: due to alcohol abuse stable ICD Codes: E87.6 - Hypokalemia SNOMED: 66972158 (6) Weakness Assessment & Plan: due to all of the above not in rhabdo resolved with fluids ICD Codes: R53.1 - Weakness SNOMED: 20760487 (7) Alcoholic hepatitis Assessment & Plan: as per above pending pt/int to calc discriminant factor monitor closely continue management per above ICD Codes: K70.10 - Alcoholic hepatitis without ascites SNOMED: 415516134 Qualifiers: Qualified Codes: K70.10 - Alcoholic hepatitis without ascites (8) Smoker Assessment & Plan: educated on smoking cessation for over 15 mins patient responded " Okay" patient very difficult to speak with, will continue to discuss cessation with patient ICD Codes: F17.200 - Nicotine dependence, unspecified, uncomplicated SNOMED: 77936044 (9) Bipolar disorder Assessment & Plan: psych consulted was on meds before, has not see a psychiatrist in a while due to insurance issues Code Status: Full I have reviewed all medications, labs and imaging with patient. Disposition: Once the patient is stable to leave the hospital, I anticipate the patient will likely be discharged to the following environment: home with HH vs SNF I spent 35 minutes on this patient's case, and counseling and/or care coordination. Discussed with patient, nursing staff, SW/CM, and ER physician regarding clinical status, treatment course, and disposition planning. Time of note may not reflect time of encounter. Discharge Medications New Medications: Chlordiazepoxide Hcl* (Librium*) 10 Mg Capsule 25 MG ORAL THREE TIMES A DAY PRN for 2 Days, #6 CAP 0 Refills Aripiprazole* (Abilify*) 10 Mg Tablet 10 MG ORAL DAILY for 28 Days, #28 TAB Divalproex Sodium (Divalproex Sodium Er) 500 Mg Tab.er.24h 1000 MG ORAL BEDTIME for 28 Days, #28 TAB Discharge Condition Upon Discharge: stable Discharge Disposition Patient was discharged to home Discharge Diagnoses: (1) Increased anion gap metabolic acidosis (2) Drug overdose (3) Alcohol intoxication (4) Transaminitis (5) Hypokalemia (6) Weakness (7) Alcoholic hepatitis (8) Bipolar disorder Yusra Lopez MD May 27, 2018 09:25
[2018-05-27] MEDS: ARIPiprazole 10mg tab ORAL SCH (09:54)
--- NOTE | 2018-05-27 22:01 | General Progress Note ---
Assessment/Plan Problem List: (1) Alcohol intoxication ICD Codes: F10.929 - Alcohol use, unspecified with intoxication, unspecified SNOMED: 63198850 (2) Bipolar disorder ICD Codes: F31.9 - Bipolar disorder, unspecified SNOMED: 14065414 (3) Drug overdose ICD Codes: T50.901A - Poisoning by unspecified drugs, medicaments and biological substances, accidental (unintentional), initial encounter SNOMED: 88571236 Qualifiers: Qualified Codes: T50.902A - Poisoning by unspecified drugs, medicaments and biological substances, intentional self-harm, initial encounter Assessment/Plan [facility] Librium ativan the pt is not at imminent dts/dto the pt would benefit from drug treatment Subjective Neurologic/Psychiatric: Reports: anxiety, depressed, emotional problems Allergies: Coded Allergies: AMOXICILLIN (Verified Allergy, Unknown, 05/24/18) Uncoded Allergies: Apples, Walnuts, Macadamia nuts, Pecans, Chocolate (Allergy, Intermediate, Itching, 05/25/18) Hives, Swelling (throat) Objective Last 24 Hour Vital Signs Date Time Temp Pulse Resp B/P (MAP) Pulse Ox O2 Delivery O2 Flow Rate FiO2 05/27/18 09:00 Room Air 05/27/18 08:00 78 05/27/18 08:00 97.9 99 15 89/55 (66) 98 05/27/18 04:00 98.0 83 20 99/70 (80) 98 05/27/18 04:00 84 05/27/18 00:00 90 05/27/18 00:00 82 Intake and Output 05/26/18 05/27/18 19:00 07:00 # Voids 10 3 Laboratory Tests 05/27/18 07:25: White Blood Count 4.9, Red Blood Count 3.79L, Hemoglobin 11.7L, Hematocrit 36.7L , Mean Corpuscular Volume 97, Mean Corpuscular Hemoglobin 30.9, Mean Corpuscular Hemoglobin Concent 31.9L, Red Cell Distribution Width 15.1H, Platelet Count 192, Mean Platelet Volume 7.6, Neutrophils (%) (Auto) 49.3, Lymphocytes (%) (Auto) 30.2, Monocytes (%) (Auto) 13.1H, Eosinophils (%) (Auto) 5.4H, Basophils (%) (Auto) 2.0, Sodium Level 140, Potassium Level 3.4L, Chloride Level 105, Carbon Dioxide Level 25, Anion Gap 10, Blood Urea Nitrogen 8 , Creatinine 0.7, Estimat Glomerular Filtration Rate > 60, Glucose Level 103, Calcium Level 8.5 Height (Feet): 5 Height (Inches): 7.00 Weight (Pounds): 178 General Appearance: alert, overweight Neurologic: oriented x 3, responsive, depressed affect Cate Jamil MD May 27, 2018 22:01
--- NOTE | 2018-05-29 14:21 | Cardiology Report ---
APPROVED REPORT EKG Measurement Heart [id number] Sinus tachycardia Nonspecific T wave abnormality Prolonged QT Abnormal ECG
== END 2018-05-27 11:30 | disposition home or self-care (01) | DRG 816 ==
LOC: EDBD 13:48 → EMR 14:12 → 2E 16:45 → EDBEDREQ 20:03 → 2E 20:44
DX: T51.0X1A Toxic effect of ethanol, accidental (unintentional), initial encounter (principal); E87.2 Acidosis; K70.10 Alcoholic hepatitis without ascites; T40.5X1A Poisoning by cocaine, accidental (unintentional), initial encounter; R74.0 Nonspecific elevation of levels of transaminase and lactic acid dehydrogenase [LDH]; E87.6 Hypokalemia; R53.1 Weakness; F17.200 Nicotine dependence, unspecified, uncomplicated; F31.9 Bipolar disorder, unspecified; Z88.1 Allergy status to other antibiotic agents; Z91.018 Allergy to other foods
CPT/HCPCS: 36415; 80048; 80053; 80307; 80329; 81001; 81025; 82550; 83690; 83735; 84443; 84484; 85025; 85610; 87081; 93005; 96361; 96365; 96368; 96375; 99285; J2405; J8499

== ENCOUNTER 2018-11-20 10:16 | Emergency (ER) | payer MEDICAID, OTHER ==
[~2018-11-20] VITALS: Ht 170.2 cm; Wt 89.4 kg
[~2018-11-20 10:16] MED LIST: ABILIFY10 MG ORAL; DIVALPROEX SOD500 M2 ORAL; LIBRIUM10 MG ORAL; NKM
--- NOTE | 2018-11-20 10:25 | NUR ---
ED Nurse Note: patient walked into ED c/o left upper abdominal/rib pain, which was there for the past 4 months. patient reports 3/10 constant pain. patient reports nausea and diarrhea for 1 week on and off, patient reports frequent urination as well but denies any pain while voiding. patient is alert awake x4 ambulatory, breathing unlabored and even.
[2018-11-20] MEDS ORDERED: GABAPENTIN100 MG ORAL (10:26)
[2018-11-20] MEDS ORDERED: ARMOUR THYROID30 MG ORAL (10:26)
[2018-11-20] MEDS ORDERED: CLONIDINE0.1 MG GT (10:26)
[2018-11-20] MEDS ORDERED: [UNRECOGNIZED DRUG - OTHER] (10:26)
[2018-11-20 10:31] VITALS: BP 115/82
[2018-11-20] MEDS ORDERED: Metoclopramide 10mg/2ml Inj IVP ONE (10:45)
[2018-11-20 11:00] LABS: APPEARANCE,URINE CLEAR; BILIRUBIN, URINE NEGATIVE (NEGATIVE); COLOR,URINE PALE YELLOW; GLUCOSE, URINE (UA) NEGATIVE (NEGATIVE); KETONES,URINE NEGATIVE (NEGATIVE); LEUKOCYTE ESTERASE ,URINE NEGATIVE (NEGATIVE); NITRITE,URINE NEGATIVE (NEGATIVE); PH,URINE 5 (4.5-8.0); PROTEIN,URINE NEGATIVE (NEGATIVE); UROBILINOGEN,URINE NORMAL MG/DL (0.0-1.0)
[2018-11-20 11:29] LABS: ANION GAP 12 mmol/L (5-15); BLOOD UREA NITROGEN 11 mg/dL (7-18); CALCIUM 9.4 MG/DL (8.5-10.1); CARBON DIOXIDE 22 MMOL/L (21-32); CHLORIDE 105 MMOL/L (98-107); CREATININE 0.9 MG/DL (0.55-1.30); POTASSIUM 4.4 MMOL/L (3.5-5.1); SODIUM 139 MMOL/L (136-145)
[2018-11-20 11:31] LABS: BASOPHILS % (AUTO) 3.3 % (0.0-2.0); EOSINOPHILS % (AUTO) 2.6 % (0.0-3.0); HEMATOCRIT 35.4 % (37.0-47.0); HEMOGLOBIN 11.9 G/DL (12.0-16.0); LYMPHOCYTES % (AUTO) 28.9 % (20.0-45.0); MEAN CORPUSCULAR VOLUME 83 FL (80-99); MONOCYTES % (AUTO) 9.5 % (1.0-10.0); NEUTROPHILS % (AUTO) 55.7 % (45.0-75.0); PLATELET COUNT 445 K/UL (150-450); RED BLOOD COUNT 4.28 M/UL (4.20-5.40); RED CELL DISTRIBUTION WIDTH 14.4 % (11.6-14.8); WHITE BLOOD COUNT 6.9 K/UL (4.8-10.8)
[2018-11-20 11:34] LABS: ALANINE AMINOTRANSFERASE 20 U/L (12-78); ALBUMIN 4.4 G/DL (3.4-5.0); ALBUMIN/GLOBULIN RATIO 1.3 (1.0-2.7); ALKALINE PHOSPHATASE 56 U/L (46-116); ASPARTATE AMINO TRANSFERASE 23 U/L (15-37); BILIRUBIN,TOTAL 0.3 MG/DL (0.2-1.0)
[2018-11-20] MEDS ORDERED: Ketorolac 30mg Inj IV ONE (12:15)
[2018-11-20] MEDS ORDERED: DiphenhydrAMINE 50mg/ml Inj IVP ONE (12:15)
[2018-11-20 12:35] VITALS: BP 132/78
--- NOTE | 2018-11-20 13:16 | Emergency Room Report ---
History of Present Illness General Chief Complaint: Nausea, Vomiting, and Diarrhea Source: Patient Present Illness HPI This patient states that for the past few days she has had recurrent diarrhea and nausea. She denies vomiting. She states that she has a history of alcohol abuse and cocaine abuse. She states she has been sober for 6 months. She denies any travel out of the country. She denies fever or chills. She does have crampy abdominal pain occasionally. She denies blood in her stool. She denies dysuria or hematuria. She states that she is also had a low-grade migraine for the past few days. She states that she has been getting migraines intermittently since becoming sober. She states that these have all been similar. She has no other complaints. Allergies: Coded Allergies: AMOXICILLIN (Verified Allergy, Unknown, 05/24/18) Uncoded Allergies: Apples, Walnuts, Macadamia nuts, Pecans, Chocolate (Allergy, Intermediate, Itching, 05/25/18) Hives, Swelling (throat) Patient History Past Medical History: see triage record, other - Hypothyroid, Hx of ETOH abuse and cocaine abuse. None x 6months. Social History: Denies: smoking, alcohol use, drug use Now: No Reviewed Nursing Documentation: PMH: Agreed; PSxH: Agreed Nursing Documentation-PMH Past Medical History: No History, Except For Hx Cardiac Problems: No Hx Cancer: No Hx Gastrointestinal Problems: No Hx Neurological Problems: No Review of Systems All Other Systems: negative except mentioned in HPI Physical Exam Vital Signs Date Time Temp Pulse Resp B/P (MAP) Pulse Ox O2 Delivery O2 Flow Rate FiO2 11/20/18 10:19 98.1 63 17 117/82 (94) 99 Sp02 EP Interpretation: reviewed, normal General Appearance: no apparent distress, alert, GCS 15, non-toxic Head: normocephalic, atraumatic Eyes: bilateral eye normal inspection, bilateral eye PERRL ENT: hearing grossly normal, normal pharynx, no angioedema, normal voice Neck: full range of motion, supple/symm/no masses Respiratory: chest non-tender, lungs clear, normal breath sounds, no respiratory distress, no retraction, no accessory muscle use, speaking full sentences Cardiovascular #1: regular rate, rhythm, no edema Gastrointestinal: normal bowel sounds, non tender, soft, non-distended, no guarding, no rebound Rectal: deferred Musculoskeletal: back normal, gait/station normal, normal range of motion, non- tender Neurologic: alert, oriented x3, responsive, motor strength/tone normal, sensory intact, speech normal Psychiatric: judgement/insight normal, memory normal, mood/affect normal, no suicidal/homicidal ideation Skin: normal color, no rash, warm/dry, well hydrated Medical Decision Making Diagnostic Impression: Primary Impression: Diarrhea Additional Impression: Migraine ER Course This patient has a clinical presentation consistent with enteritis/colitis. The patient's abdominal exam was benign. I do not suspect cholecystitis, pancreatitis, appendicitis or diverticulitis based on history and physical and laboratory workup. This is likely viral in etiology. The patient is nontoxic and nonsurgical at this time. This patient also has a clinical presentation consistent with migraine. The patient was treated with Reglan, Benadryl, Toradol and 1 liter of normal saline. There were no red flags on physical exam or history. I do not suspect meningitis, intracranial bleed, sinusitis. No emergency medical condition was identified. The patient was given return precautions and followup instructions. Laboratory Tests Test 11/20/18 10:30 11/20/18 11:03 Urine Color Pale yellow Urine Appearance Clear Urine pH 5 (4.5-8.0) Urine Specific Ernest 1.005 (1.005-1.035) Urine Protein Negative (NEGATIVE) Urine Glucose (UA) Negative (NEGATIVE) Urine Ketones Negative (NEGATIVE) Urine Blood Negative (NEGATIVE) Urine Nitrite Negative (NEGATIVE) Urine Bilirubin Negative (NEGATIVE) Urine Urobilinogen Normal MG/DL (0.0-1.0) Urine Leukocyte Esterase Negative (NEGATIVE) Urine HCG, Qualitative Negative (NEGATIVE) White Blood Count 6.9 K/UL (4.8-10.8) Red Blood Count 4.28 M/UL (4.20-5.40) Hemoglobin 11.9 G/DL (12.0-16.0) L Hematocrit 35.4 % (37.0-47.0) L Mean Corpuscular Volume 83 FL (80-99) Mean Corpuscular Hemoglobin 27.9 PG (27.0-31.0) Mean Corpuscular Hemoglobin Concent 33.7 G/DL (32.0-36.0) Red Cell Distribution Width 14.4 % (11.6-14.8) Platelet Count 445 K/UL (150-450) Mean Platelet Volume 5.4 FL (6.5-10.1) L Neutrophils (%) (Auto) 55.7 % (45.0-75.0) Lymphocytes (%) (Auto) 28.9 % (20.0-45.0) Monocytes (%) (Auto) 9.5 % (1.0-10.0) Eosinophils (%) (Auto) 2.6 % (0.0-3.0) Basophils (%) (Auto) 3.3 % (0.0-2.0) H Sodium Level 139 MMOL/L (136-145) Potassium Level 4.4 MMOL/L (3.5-5.1) Chloride Level 105 MMOL/L (98-107) Carbon Dioxide Level 22 MMOL/L (21-32) Anion Gap 12 mmol/L (5-15) Blood Urea Nitrogen 11 mg/dL (7-18) Creatinine 0.9 MG/DL (0.55-1.30) Estimate Glomerular Filtration Rate > 60 mL/min (>60) Glucose Level 113 MG/DL (74-106) H Calcium Level 9.4 MG/DL (8.5-10.1) Total Bilirubin 0.3 MG/DL (0.2-1.0) Aspartate Amino Transferase (AST) 23 U/L (15-37) Alanine Aminotransferase (ALT) 20 U/L (12-78) Alkaline Phosphatase 56 U/L (46-116) Total Protein 7.9 G/DL (6.4-8.2) Albumin 4.4 G/DL (3.4-5.0) Globulin 3.5 g/dL Albumin/Globulin Ratio 1.3 (1.0-2.7) Lipase 145 U/L (73-393) Last Vital Signs Date Time Temp Pulse Resp B/P (MAP) Pulse Ox O2 Delivery O2 Flow Rate FiO2 11/20/18 12:57 98.1 11/20/18 12:35 78 17 132/78 100 Status: improved Disposition: HOME, SELF-CARE Condition: Improved Referrals: NON PHYSICIAN (PCP) Machelle Estes DO Nov 20, 2018 13:16
[2018-11-20 13:28] VITALS: BP 132/78
--- NOTE | 2018-11-20 13:29 | NUR ---
ER DISCHARGE NOTE: Patient is cleared to be discharged per ERMD DR Estes, pt is aox4, on room air, with stable vital signs. pt was given dc instructions, pt was able to verbalize understanding, pt id band and iv site removed without complications. pt is able to ambulate with steady gait. pt took all belongings.
[2018-11-20] MEDS ORDERED: ZOFRAN ODT8 MG ORAL (13:39)
== END 2018-11-20 12:48 | disposition home or self-care (01) ==
LOC: EMR 10:45
DX: R19.7 Diarrhea, unspecified (principal); G43.909 Migraine, unspecified, not intractable, without status migrainosus; R11.0 Nausea; Z88.0 Allergy status to penicillin; Z91.018 Allergy to other foods
CPT/HCPCS: 36415; 80053; 81003; 81025; 83690; 85025; 96361; 96374; 96375; 96376; 99284; J1200; J1885; J2765; S0028

== ENCOUNTER 2019-01-04 14:46 | Emergency (ER) | payer OTHER ==
[~2019-01-04] VITALS: Ht 170.2 cm; Wt 90.3 kg
[~2019-01-04 14:46] MED LIST changes: +ARMOUR THYROID30 MG ORAL; +CLONIDINE0.1 MG GT; +GABAPENTIN100 MG ORAL; +ZOFRAN ODT8 MG ORAL; +[UNRECOGNIZED DRUG - OTHER]
--- NOTE | 2019-01-04 15:15 | NUR ---
ED Nurse Note: pt walked in ED c/o anxiety Addendum: 01/04/19 at 1906 by HANNAH ED Nurse Note: Pt states she does not feel well, states she has been drinking alcohol and admits to use of cocaine yesterday. Pt is aaox4, able to make needs known, VSS. Mild tremors noted, pt placed in bed and ekg monitor tech.
--- NOTE | 2019-01-04 15:15 | NUR ---
Note inderjit in EDM - 01/04/19 at 1905 by HANNAH ED Nurse Note: Pt walked in ED c/o anxiety, drug use, and admits to SI but no plan. Pt states last cocaine use was yesterday 01/03/19.
[2019-01-04 15:18] VITALS: BP 130/86
--- NOTE | 2019-01-04 15:36 | NUR ---
ED Nurse Note: xray at bedside
[2019-01-04 15:59] LABS: BASOPHILS % (AUTO) 2.1 % (0.0-2.0); EOSINOPHILS % (AUTO) 1.1 % (0.0-3.0); HEMATOCRIT 36.3 % (37.0-47.0); HEMOGLOBIN 12.1 G/DL (12.0-16.0); LYMPHOCYTES % (AUTO) 37.9 % (20.0-45.0); MEAN CORPUSCULAR VOLUME 85 FL (80-99); PLATELET COUNT 411 K/UL (150-450); RED BLOOD COUNT 4.25 M/UL (4.20-5.40); RED CELL DISTRIBUTION WIDTH 15.4 % (11.6-14.8); WHITE BLOOD COUNT 5.8 K/UL (4.8-10.8)
[2019-01-04 16:07] LABS: ANION GAP 13 mmol/L (5-15); BLOOD UREA NITROGEN 11 mg/dL (7-18); CALCIUM 8.4 MG/DL (8.5-10.1); CARBON DIOXIDE 23 MMOL/L (21-32); CHLORIDE 106 MMOL/L (98-107); CREATININE 0.7 MG/DL (0.55-1.30); POTASSIUM 3.6 MMOL/L (3.5-5.1); SODIUM 142 MMOL/L (136-145)
--- NOTE | 2019-01-04 16:20 | NUR ---
ED Nurse Note: ERMD at bedside
--- NOTE | 2019-01-04 16:20 | Diagnostic Imaging Report ---
Indication: Shortness of breath Technique: One view of the chest Comparison: none Findings: Lungs and pleural spaces are clear. The heart size is normal. Impression: Negative
[2019-01-04 16:22] VITALS: BP 115/73
[2019-01-04 16:22] LABS: ALANINE AMINOTRANSFERASE 21 U/L (12-78); ALBUMIN 3.8 G/DL (3.4-5.0); ALBUMIN/GLOBULIN RATIO 0.9 (1.0-2.7); ALKALINE PHOSPHATASE 67 U/L (46-116); ASPARTATE AMINO TRANSFERASE 25 U/L (15-37); BILIRUBIN,TOTAL 0.2 MG/DL (0.2-1.0); CKMB < 0.5 NG/ML (0.0-3.6); CREATINE KINASE 70 U/L (26-308)
--- NOTE | 2019-01-04 16:39 | NUR ---
ED Nurse Note: Patient wants to leave ED, AMA. HASSAN informed and made aware.
--- NOTE | 2019-01-04 17:00 | NUR ---
ED Nurse Note: pt remained in bed, resting.
--- NOTE | 2019-01-04 17:21 | NUR ---
ED Nurse Note: Pt in bed at this time, resting. Verbalized understanding why she's in the hospital. Denies SI at this time.
--- NOTE | 2019-01-04 17:35 | NUR ---
ELOPEMENT: Pt left facility; charge nurse and ERMD notified and made aware. IV was removed prior to pt leaving facility.
--- NOTE | 2019-01-04 17:49 | Emergency Room Report ---
History of Present Illness General Chief Complaint: General Complaint Source: Patient Present Illness HPI This patient states that she had been sober until the past couple weeks. She states she has a long history of polysubstance abuse to include cocaine and alcohol. She states that yesterday she was using cocaine and drinking alcohol. She states that she has not been feeling "well." She states that all day today she has been drinking and has a sense of doom. She also feels very anxious. She states that she cannot fully put into words how she is feeling. She states that she does not feel safe. She has no other specific complaints. Allergies: Coded Allergies: AMOXICILLIN (Verified Allergy, Unknown, 05/24/18) Uncoded Allergies: Apples, Walnuts, Macadamia nuts, Pecans, Chocolate (Allergy, Intermediate, Itching, 05/25/18) Hives, Swelling (throat) Patient History Past Medical History: see triage record, other - cocaine abuse, ETOH abuse, hypothyroid Social History: Reports: alcohol use, drug use; Denies: smoking Last Menstrual Period: 01/02/19 STARTED Now: No Reviewed Nursing Documentation: PMH: Agreed; PSxH: Agreed Nursing Documentation-PMH Past Medical History: No History, Except For Hx Cancer: No Hx Gastrointestinal Problems: No Hx Neurological Problems: No Review of Systems All Other Systems: negative except mentioned in HPI Physical Exam Vital Signs Date Time Temp Pulse Resp B/P (MAP) Pulse Ox O2 Delivery O2 Flow Rate FiO2 01/04/19 14:53 98.4 88 19 130/86 (101) 94 Room Air Sp02 EP Interpretation: reviewed, normal General Appearance: no apparent distress, alert, GCS 15, non-toxic Head: normocephalic, atraumatic Eyes: bilateral eye normal inspection, bilateral eye PERRL ENT: hearing grossly normal, normal pharynx, no angioedema, normal voice Neck: full range of motion, supple/symm/no masses Respiratory: chest non-tender, lungs clear, normal breath sounds, no respiratory distress, no retraction, no accessory muscle use, speaking full sentences Cardiovascular #1: regular rate, rhythm, no edema Gastrointestinal: normal bowel sounds, non tender, soft, non-distended, no guarding, no rebound Rectal: deferred Musculoskeletal: back normal, gait/station normal, normal range of motion, non- tender Neurologic: alert, oriented x3, responsive, motor strength/tone normal, sensory intact, speech normal Psychiatric: judgement/insight normal, memory normal, mood/affect normal, no suicidal/homicidal ideation Medical Decision Making Diagnostic Impression: Primary Impression: Polysubstance abuse Additional Impression: Polysubstance (excluding opioids) dependence ER Course This patient has known polysubstance abuse and alcohol abuse. She states she is "not feeling well." She did have a blood alcohol of 287. In addition, she was positive for cocaine. I suspect her symptoms are related to her polysubstance abuse and dependence. She may also have a psychiatric component. I offered the patient inpatient psychiatric care and she declined adamantly. Before was able to fully work-up this patient she eloped from the emergency department. I was unable to finish caring for this patient. The patient was articulate and alert. Laboratory Tests Test 01/04/19 15:35 White Blood Count 5.8 K/UL (4.8-10.8) Red Blood Count 4.25 M/UL (4.20-5.40) Hemoglobin 12.1 G/DL (12.0-16.0) Hematocrit 36.3 % (37.0-47.0) L Mean Corpuscular Volume 85 FL (80-99) Mean Corpuscular Hemoglobin 28.4 PG (27.0-31.0) Mean Corpuscular Hemoglobin Concent 33.3 G/DL (32.0-36.0) Red Cell Distribution Width 15.4 % (11.6-14.8) H Platelet Count 411 K/UL (150-450) Mean Platelet Volume 5.2 FL (6.5-10.1) L Neutrophils (%) (Auto) 53.0 % (45.0-75.0) Lymphocytes (%) (Auto) 37.9 % (20.0-45.0) Monocytes (%) (Auto) 6.0 % (1.0-10.0) Eosinophils (%) (Auto) 1.1 % (0.0-3.0) Basophils (%) (Auto) 2.1 % (0.0-2.0) H Urine HCG, Qualitative Negative (NEGATIVE) Sodium Level 142 MMOL/L (136-145) Potassium Level 3.6 MMOL/L (3.5-5.1) Chloride Level 106 MMOL/L (98-107) Carbon Dioxide Level 23 MMOL/L (21-32) Anion Gap 13 mmol/L (5-15) Blood Urea Nitrogen 11 mg/dL (7-18) Creatinine 0.7 MG/DL (0.55-1.30) Estimate Glomerular Filtration Rate > 60 mL/min (>60) Glucose Level 86 MG/DL (74-106) Calcium Level 8.4 MG/DL (8.5-10.1) L Total Bilirubin 0.2 MG/DL (0.2-1.0) Aspartate Amino Transferase (AST) 25 U/L (15-37) Alanine Aminotransferase (ALT) 21 U/L (12-78) Alkaline Phosphatase 67 U/L (46-116) Total Creatine Kinase 70 U/L (26-308) Creatine Kinase MB < 0.5 NG/ML (0.0-3.6) Creatine Kinase MB Relative Index 0.7 Troponin I 0.000 ng/mL (0.000-0.056) Total Protein 7.8 G/DL (6.4-8.2) Albumin 3.8 G/DL (3.4-5.0) Globulin 4.0 g/dL Albumin/Globulin Ratio 0.9 (1.0-2.7) L Urine Opiates Screen Negative (NEGATIVE) Urine Barbiturates Screen Negative (NEGATIVE) Phencyclidine (PCP) Screen Negative (NEGATIVE) Urine Amphetamines Screen Negative (NEGATIVE) Urine Benzodiazepines Screen Negative (NEGATIVE) Urine Cocaine Screen Positive (NEGATIVE) H Urine Marijuana (THC) Screen Negative (NEGATIVE) Serum Alcohol 287 mg/dL EKG Diagnostic Results Rate: normal Rhythm: NSR ST Segments: no acute changes Rhythm Strip Diag. Results EP Interpretation: yes Rate: 70's Rhythm: NSR, no PVC's, no ectopy Chest X-Ray Diagnostic Results Chest X-Ray Diagnostic Results : Chest X-Ray Ordered: Yes # of Views/Limited/Complete: 1 View Indication: Other EP Interpretation: Yes Interpretation: no consolidation, no effusion, no pneumothorax, no acute cardiopulmonary disease Impression: No acute disease Electronically Signed by: Machelle Estes DO Last Vital Signs Date Time Temp Pulse Resp B/P (MAP) Pulse Ox O2 Delivery O2 Flow Rate FiO2 01/04/19 16:22 98.4 75 19 115/73 96 Room Air Status: improved Disposition: ELOPED Condition: Stable Referrals: [facility],REFERR[facility] (PCP) Machelle Estes DO Jan 04, 2019 17:49
--- NOTE | 2019-01-05 13:25 | Cardiology Report ---
APPROVED REPORT EKG Measurement Heart [id number] Normal sinus rhythm with sinus arrhythmia Normal ECG
== END 2019-01-04 17:35 | disposition left against medical advice (07) ==
LOC: EMR 15:55
DX: F14.10 Cocaine abuse, uncomplicated (principal); R06.02 Shortness of breath; F19.20 Other psychoactive substance dependence, uncomplicated; F10.10 Alcohol abuse, uncomplicated; Z88.0 Allergy status to penicillin; Z91.018 Allergy to other foods; Y90.8 Blood alcohol level of 240 mg/100 ml or more; E03.9 Hypothyroidism, unspecified; F41.9 Anxiety disorder, unspecified
CPT/HCPCS: 36415; 71045; 80053; 80307; 81025; 82550; 82553; 84484; 85025; 93005; 96360; 99284; G0480; 80329

== ENCOUNTER 2019-01-05 08:50 | Emergency (ER) | payer OTHER ==
[2019-01-05] VITALS (12 sets, daily range): BP systolic 102–131; BP diastolic 60–93
[~2019-01-05] VITALS: Ht 170.2 cm; Wt 90.7 kg
--- NOTE | 2019-01-05 09:00 | NUR ---
came from home states she overdose on her meds about 0730 as a suicidal attempt . awake alert orinted x4 no distress noted patient is placed in room 7 sitter at bedside(safia)omaira
--- NOTE | 2019-01-05 09:03 | NUR ---
ED Nurse Note: pt walked in to ED due to overdose on PROPRANOLOL about 2 hrs ago. pt took it to kill herself. per pt, it was appox 10 tabs. pt was sober for 7 months from drug and alcohol. but recently start drinking and doing drugs. feels depressed. pt did not provide detail information what makes her depressed recently. AAO x4. respirations even and non-labored noted. 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 poison control will call. skin warm to touch. no opne wound noted. denies SI/HI at this time. denies hearing voices or seeing things. RN made verbal contract that pt will stay in safe. pt request food. RN order regular diet tray. RN sitting at the bed side as sitter. will wait for the further order.
--- NOTE | 2019-01-05 09:03 | NUR ---
ED Nurse Note: PT PLACED IN ROOM 7 AND REPORT GIVEN TO SE SIMÓN RN. ALL OF PT'S BELONGINGS REMOVED AND PLACED IN LOCKER #2. 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 ALL UNNECESSARY ITEMS REMOVED FROM PT'S ROOM FOR SAFETY. SITTER AT BEDSIDE.
--- NOTE | 2019-01-05 09:37 | NUR ---
ED Nurse Note: POISON CONTROL CALLED. SPOKE WITH MIGUEL WHO STATES TREATMENT FOR PROPRANOLOL OD IS GLUCAGON FOR HoTN AND ATROPINE FOR BRADYCARDIA. GLUCAGON DOSAGE: 3-10MG IV OVER 1-2 MINUTES Q3-5 MINUTES WITH A MAX DOSE OF 10MG. MAINTENANCE GLUCAGON CAN BE RUN AT 1-5MG/HR. CHARCOAL CAN BE CONSIDERED BUT MAY NOT BE THAT EFFECTIVE DUE TO TIME ON INGESTION. DR HERNANDEZ NOTIFIED.
--- NOTE | 2019-01-05 09:45 | NUR ---
ED Nurse Note: pt asked for meds to calm her down. RN notified Dr. Mustafa. will wait for the order.
--- NOTE | 2019-01-05 10:00 | NUR ---
sitter at bedside awake alert oriented no suicidal ideation now
--- NOTE | 2019-01-05 10:18 | NUR ---
ED Nurse Note: breakfast tray provide.
[2019-01-05 10:28] LABS: BASOPHILS % (AUTO) 2.2 % (0.0-2.0); EOSINOPHILS % (AUTO) 1.4 % (0.0-3.0); HEMATOCRIT 39.9 % (37.0-47.0); HEMOGLOBIN 12.6 G/DL (12.0-16.0); LYMPHOCYTES % (AUTO) 37.1 % (20.0-45.0); MEAN CORPUSCULAR VOLUME 88 FL (80-99); MONOCYTES % (AUTO) 8.2 % (1.0-10.0); PLATELET COUNT 414 K/UL (150-450); RED BLOOD COUNT 4.54 M/UL (4.20-5.40); RED CELL DISTRIBUTION WIDTH 16.5 % (11.6-14.8); WHITE BLOOD COUNT 6.7 K/UL (4.8-10.8)
[2019-01-05] MEDS ORDERED: LORazepam 0.5mg tab ORAL ONE (10:30)
[2019-01-05 10:33] LABS: APPEARANCE,URINE SLIGHTLY CLOUDY; BILIRUBIN, URINE NEGATIVE (NEGATIVE); COLOR,URINE PALE YELLOW; GLUCOSE, URINE (UA) NEGATIVE (NEGATIVE); KETONES,URINE NEGATIVE (NEGATIVE); LEUKOCYTE ESTERASE ,URINE NEGATIVE (NEGATIVE); NITRITE,URINE NEGATIVE (NEGATIVE); PH,URINE 6 (4.5-8.0); PROTEIN,URINE 1+ (NEGATIVE); UROBILINOGEN,URINE NORMAL MG/DL (0.0-1.0)
[2019-01-05 10:45] LABS: ANION GAP 15 mmol/L (5-15); BLOOD UREA NITROGEN 13 mg/dL (7-18); CALCIUM 8.5 MG/DL (8.5-10.1); CARBON DIOXIDE 22 MMOL/L (21-32); CHLORIDE 106 MMOL/L (98-107); CREATININE 0.9 MG/DL (0.55-1.30); POTASSIUM 3.5 MMOL/L (3.5-5.1); SODIUM 143 MMOL/L (136-145)
[2019-01-05 10:49] LABS: ALANINE AMINOTRANSFERASE 17 U/L (12-78); ALBUMIN 3.8 G/DL (3.4-5.0); ALKALINE PHOSPHATASE 68 U/L (46-116); ASPARTATE AMINO TRANSFERASE 27 U/L (15-37); BILIRUBIN,TOTAL 0.2 MG/DL (0.2-1.0)
--- NOTE | 2019-01-05 11:00 | NUR ---
continue to monitor .sitter at bedside
--- NOTE | 2019-01-05 12:22 | NUR ---
ED Nurse Note: pt asked for her belonings and told RN " I want to leave." RN re educated the pt that needs to stay in hospital and can not give back her belonings back. pt understand and follow the command. will wait for the further order.
--- NOTE | 2019-01-05 12:59 | Emergency Room Report ---
History of Present Illness General Chief Complaint: Suicidal Source: Patient Present Illness HPI Patient is a 43-year-old female presented after increased suicidal thoughts. Patient states that she had been more suicidal. She had prior history of anxiety. She states that she had taken medications she reports having taken propranolol. Overdose in attempt to harm her self. Allergies: Coded Allergies: AMOXICILLIN (Verified Allergy, Unknown, 05/24/18) Uncoded Allergies: Apples, Walnuts, Macadamia nuts, Pecans, Chocolate (Allergy, Intermediate, Itching, 05/25/18) Hives, Swelling (throat) Patient History Last Menstrual Period: 01/03/19 Now: No Reviewed Nursing Documentation: PMH: Agreed; PSxH: Agreed Nursing Documentation-PMH Past Medical History: No History, Except For Hx Cancer: No Hx Gastrointestinal Problems: No Hx Neurological Problems: No Review of Systems All Other Systems: negative except mentioned in HPI Physical Exam Vital Signs Date Time Temp Pulse Resp B/P (MAP) Pulse Ox O2 Delivery O2 Flow Rate FiO2 01/05/19 09:03 98.2 80 20 121/84 (96) 96 Room Air Sp02 EP Interpretation: reviewed, normal General Appearance: alert/responsive, no apparent distress, GCS 15, non-toxic Head: normocephalic, atraumatic Eyes: normal eye exam, PERRL, lids + conjunctiva normal ENT: hearing intact, no angioedema Neck: supple/symm/no masses, no meningismus Respiratory: effort normal, no wheezing, chest symmetrical Cardiovascular: regular rate, rhythm, no edema Cardiovascular #2: 2+ carotid (R), 2+ carotid (L), 2+ dorsalis pedis (R), 2+ dorsalis pedis (L) Gastrointestinal: non-tender, no mass, non-distended, no rebound/guarding, normal bowel sounds Musculoskeletal: gait & station normal, strength & tone normal, normal ROM, non -tender Neurologic: oriented x3, sensory intact, normal speech Skin: no rash, well hydrated Lymphatic: normal inspection Medical Decision Making Diagnostic Impression: Primary Impression: Bipolar disorder Additional Impressions: Suicidal intent Alcohol intoxication Overdose ER Course Patient presented for reported suicidal thoughts. Differential diagnosis include was not limited to suicide attempt, alcohol intoxication, substance abuse, malingering among others. Because of complexity of patient's case laboratory testing and imaging studies were ordered. Patient was noted to have reported ingestion of propranolol. Patient was observed in the emergency department and was noted to have no drops in her blood pressure or heart rate. Patient has prior history of chronic hypothyroidism. Blood alcohol was noted to be positive for blood alcohol is noted to be markedly elevated. Patient was given IV thiamine. She was reinitiated on Synthroid therapy.Patient's repeat blood alcohol level was noted to be 120.Patient was noted to feel somewhat tremulous at this point was given oral Ativan. Patient was noted to be ambulatory without assistance Patient was medically cleared for psychiatric placement.Patient will likely be transferred for further psychiatric evaluation and treatment. Labs Test 01/05/19 09:24 White Blood Count 6.7 K/UL (4.8-10.8) Red Blood Count 4.54 M/UL (4.20-5.40) Hemoglobin 12.6 G/DL (12.0-16.0) Hematocrit 39.9 % (37.0-47.0) Mean Corpuscular Volume 88 FL (80-99) Mean Corpuscular Hemoglobin 27.8 PG (27.0-31.0) Mean Corpuscular Hemoglobin Concent 31.6 G/DL (32.0-36.0) Red Cell Distribution Width 16.5 % (11.6-14.8) Platelet Count 414 K/UL (150-450) Mean Platelet Volume 5.0 FL (6.5-10.1) Neutrophils (%) (Auto) 51.0 % (45.0-75.0) Lymphocytes (%) (Auto) 37.1 % (20.0-45.0) Monocytes (%) (Auto) 8.2 % (1.0-10.0) Eosinophils (%) (Auto) 1.4 % (0.0-3.0) Basophils (%) (Auto) 2.2 % (0.0-2.0) Urine Color Pale yellow Urine Appearance Slightly cloudy Urine pH 6 (4.5-8.0) Urine Specific [place] 1.010 (1.005-1.035) Urine Protein 1+ (NEGATIVE) Urine Glucose (UA) Negative (NEGATIVE) Urine Ketones Negative (NEGATIVE) Urine Blood 1+ (NEGATIVE) Urine Nitrite Negative (NEGATIVE) Urine Bilirubin Negative (NEGATIVE) Urine Urobilinogen Normal MG/DL (0.0-1.0) Urine Leukocyte Esterase Negative (NEGATIVE) Urine RBC 0-2 /HPF (0 - 2) Urine WBC 2-4 /HPF (0 - 2) Urine Squamous Epithelial Cells Occasional /LPF Urine Bacteria Occasional /HPF (NONE) Urine HCG, Qualitative Negative (NEGATIVE) Sodium Level 143 MMOL/L (136-145) Potassium Level 3.5 MMOL/L (3.5-5.1) Chloride Level 106 MMOL/L (98-107) Carbon Dioxide Level 22 MMOL/L (21-32) Anion Gap 15 mmol/L (5-15) Blood Urea Nitrogen 13 mg/dL (7-18) Creatinine 0.9 MG/DL (0.55-1.30) Estimat Glomerular Filtration Rate > 60 mL/min (>60) Glucose Level 88 MG/DL (74-106) Calcium Level 8.5 MG/DL (8.5-10.1) Total Bilirubin 0.2 MG/DL (0.2-1.0) Aspartate Amino Transf (AST/SGOT) 27 U/L (15-37) Alanine Aminotransferase (ALT/SGPT) 17 U/L (12-78) Alkaline Phosphatase 68 U/L (46-116) Troponin I 0.004 ng/mL (0.000-0.056) Total Protein 7.7 G/DL (6.4-8.2) Albumin 3.8 G/DL (3.4-5.0) Globulin 3.9 g/dL Albumin/Globulin Ratio 1.0 (1.0-2.7) Thyroid Stimulating Hormone (TSH) 10.627 uiU/mL (0.358-3.740) Salicylates Level 1.4 ug/mL (2.8-20) Serum Alcohol 244 mg/dL Last Vital Signs Date Time Temp Pulse Resp B/P (MAP) Pulse Ox O2 Delivery O2 Flow Rate FiO2 01/05/19 11:30 71 15 102/62 97 Room Air 01/05/19 09:10 98.0 Status: improved Disposition: XFER TO PSYCH HOSP/UNIT Condition: Stable Referrals: [facility],REFERR[facility] (PCP) Efren Mustafa MD Jan 05, 2019 12:59
--- NOTE | 2019-01-05 13:00 | NUR ---
continue to monitor sitter at bedside
--- NOTE | 2019-01-05 14:11 | NUR ---
ED Nurse Note: repeat alcohol sample sent.
[2019-01-05] MEDS ORDERED: LORazepam 1mg tab ORAL ONE (14:15)
--- NOTE | 2019-01-05 15:25 | NUR ---
ED Nurse Note: pt lying in bed comfortably with eye closed. will wait for the further order.
--- NOTE | 2019-01-05 16:58 | NUR ---
spoke to aneta at [employer] of [facility] . patient is not a candidate for [facility] . needs inpatient care.so unable to accept her this time
--- NOTE | 2019-01-05 19:05 | NUR ---
HAND-OFF: Report given to Sterling Dash RN.
--- NOTE | 2019-01-05 19:05 | NUR ---
ED Nurse Note: received patient from omaira baig. patient resting comfortably in bed with nad. ao4. vss. sitter at bedside. low risk environment observed. iv intact and patent. monitor attached to patient.
--- NOTE | 2019-01-05 20:42 | NUR ---
ED Nurse Note: sylvia, poison control, requested update on vitals. per sylvia, he does not have any further recommendations.
--- NOTE | 2019-01-05 21:00 | NUR ---
ED Nurse Note: patient resting comfortably in bed with nad. ao4. vss. sitter at bedside. friend at bedside. provided patient with food and water. offered toiletting; pt refused at this time. discussed plan of care; patient cooperative.
--- NOTE | 2019-01-05 22:00 | NUR ---
ED Nurse Note: patient resting comfortably in bed with nad. ao4. vss. sitter at bedside.
--- NOTE | 2019-01-05 23:15 | NUR ---
ED Nurse Note: repeat alcohol level drawn; sent down to lab.
[2019-01-06] VITALS: BP 112/88
--- NOTE | 2019-01-06 | NUR ---
ED Nurse Note: patient sleeping comfortably in bed with nad. vss. sitter at bedside. will continue to monitor.
--- NOTE | 2019-01-06 01:00 | NUR ---
ED Nurse Note: patient sleeping comfortably in bed with nad. vss. sitter at bedside. will continue to monitor.
--- NOTE | 2019-01-06 02:00 | NUR ---
ED Nurse Note: patient sleeping comfortably in bed with nad. vss. sitter at bedside. will continue to monitor.
[2019-01-06 02:47] VITALS: BP 120/74
--- NOTE | 2019-01-06 03:00 | NUR ---
ED Nurse Note: patient sleeping comfortably in bed with nad. vss. sitter at bedside. will continue to monitor.
[2019-01-06 04:00] VITALS: BP 111/61
--- NOTE | 2019-01-06 04:00 | NUR ---
ED Nurse Note: report given to kelly nurse research dairy farm supervisor of [facility]. patient to be admitted to room 633a under the care or md martha. report given to [facility]. belongings and medication given to [facility] and sent with patient for transfer
[2019-01-06] MEDS ORDERED: Levothyroxine 125mcg tab ORAL SCH (06:30)
== END 2019-01-06 04:00 ==
LOC: EMR 09:54
DX: F31.9 Bipolar disorder, unspecified (principal); F10.129 Alcohol abuse with intoxication, unspecified; T44.7X2A Poisoning by beta-adrenoreceptor antagonists, intentional self-harm, initial encounter; Y92.9 Unspecified place or not applicable; Z88.0 Allergy status to penicillin; Z91.018 Allergy to other foods; E03.9 Hypothyroidism, unspecified
CPT/HCPCS: 36415; 80053; 80307; 81001; 81025; 84443; 84484; 85025; 93005; 99285; G0480; J7040; 80329